=== PATIENT | female | born 1965 | race Caucasian/White ===

== ENCOUNTER 2016-03-12 22:45 | Emergency (ER) | payer MEDICARE ==
[2011-03-04 14:12] VITALS: BMI 23.2
[2016-03-13 00:22] LABS: BASOPHILS 0.4 % (0.0-2.0); EOSINOPHILS 8.4 % (0-7); HEMATOCRIT 41.5 % (36.0-48.0); HEMOGLOBIN 13.7 g/dL (12-16); IMMATURE GRANULOCYTES 0.3 % (0-5); LYMPHOCYTES 32.5 % (15-50); MCH 28.8 pg (26.0-34.0); MCV 87.4 fL (80.0-100.0); MEAN PLATELET VOLUME 10.4 fL (7.4-10.4); MONOCYTES 7.2 % (2-11); NEUTROPHILS 51.2 % (40-80); PLATELET COUNT 174 10x3/uL (130-400); RBC 4.75 10x6/uL (4.00-5.40); RDW 12.4 % (11.5-14.5); WBC 9.2 10x3/uL (4.8-10.8)
[2016-03-13 00:36] LABS: ALBUMIN 3.9 g/dL (3.4-5.0); ALKALINE PHOSPHATASE 94 U/L (46-116); ALT (SGPT) 23 U/L (10-68); BILIRUBIN - TOTAL 0.19 mg/dL (0.2-1.3); CALC OSMOLALITY 295 mosm/kg (275-300); CALCIUM 9.5 mg/dL (8.5-10.1); CARBON DIOXIDE 31.7 mmol/L (21.0-32.0); CHLORIDE - SERUM 106 mmol/L (98-107); GLUCOSE 110 mg/dL (74-106); POTASSIUM - SERUM 4.1 mmol/L (3.5-5.1); SODIUM 147 mmol/L (136-145); UREA NITROGEN 22 mg/dL (7-18); eGFR NON AFRICAN AMERICAN 62 mL/min (90-120)
[2016-03-13 00:52] LABS: CKMB 0.9 U/L (0.0-3.6); CREATINE KINASE 62 UL (21-215); TROPONIN-I 0.021 ng/mL (0.000-0.060)
== END 2016-03-13 02:44 | disposition home or self-care (01) ==
LOC: D.ER 22:45
PROVIDERS: Emergency Medicine
DX: R07.9 Chest pain, unspecified (principal); R00.1 Bradycardia, unspecified; R94.31 Abnormal electrocardiogram [ECG] [EKG]

== ENCOUNTER → 2016-11-13 12:41 | Outpatient (CLI) | payer MEDICARE ==
[2011-03-04 14:12] VITALS: BMI 23.2
== END | disposition home or self-care (01) ==
LOC: D.RAD 12:41
DX: R13.10 Dysphagia, unspecified (principal)

== ENCOUNTER 2017-07-08 17:38 | Emergency (ER) | payer MEDICARE ==
[2011-03-04 14:12] VITALS: BMI 23.2
[2017-07-08 18:32] LABS: BASOPHILS 0.3 % (0-2); EOSINOPHILS 1.6 % (0-7); HEMATOCRIT 37.6 % (36.0-48.0); HEMOGLOBIN 12.6 g/dL (12-16); IMMATURE GRANULOCYTES 0.1 % (0-5); LYMPHOCYTES 29.1 % (15-50); MCHC 33.5 g/dL (31.0-37.0); MCV 86.4 fL (80.0-100.0); MEAN PLATELET VOLUME 10.3 fL (7.4-10.4); MONOCYTES 7.9 % (2-11); PLATELET COUNT 184 10x3/uL (130-400); RBC 4.35 10x6/uL (4.00-5.40); RDW 12.3 % (11.5-14.5); WBC 7.6 10x3/uL (4.8-10.8)
[2017-07-08 18:50] LABS: ALBUMIN 3.8 g/dL (3.4-5.0); ALKALINE PHOSPHATASE 86 U/L (46-116); ALT (SGPT) 19 U/L (10-68); BILIRUBIN - TOTAL 0.35 mg/dL (0.2-1.3); CALC OSMOLALITY 278 mosm/kg (275-300); CALCIUM 9.3 mg/dL (8.5-10.1); CARBON DIOXIDE 29.1 mmol/L (21.0-32.0); CHLORIDE - SERUM 101 mmol/L (98-107); CREATININE - SERUM 0.9 mg/dL (0.6-1.3); GLUCOSE 96 mg/dL (74-106); PROTEIN - SERUM 7.6 g/dL (6.4-8.2); SODIUM 138 mmol/L (136-145); UREA NITROGEN 21 mg/dL (7-18); eGFR NON AFRICAN AMERICAN 69 mL/min (90-120)
[2017-07-08 19:04] LABS: CKMB 0.7 U/L (0.0-3.6); CREATINE KINASE 62 UL (21-215)
[2017-07-08 19:05] LABS: TROPONIN-I < 0.017 ng/mL (0.000-0.060)
== END 2017-07-08 19:32 | disposition home or self-care (01) ==
LOC: D.ER 17:38
PROVIDERS: Emergency Medicine
DX: R07.89 Other chest pain (principal); J18.9 Pneumonia, unspecified organism; R00.1 Bradycardia, unspecified; I45.4 Nonspecific intraventricular block

== ENCOUNTER 2017-07-14 15:37 | Emergency (ER) | payer MEDICARE ==
[2011-03-04 14:12] VITALS: BMI 23.2
== END 2017-07-14 17:18 | disposition home or self-care (01) ==
LOC: D.ER 15:37
DX: R07.89 Other chest pain (principal); R07.81 Pleurodynia; I45.10 Unspecified right bundle-branch block

== ENCOUNTER 2017-08-24 17:22 | Emergency (ER) | payer MEDICARE ==
[~2017-08-24] VITALS: Ht 175.3 cm; Wt 67.7 kg
[2017-08-24 17:54] VITALS: Ht 175.3 cm; Wt 67.7 kg
[2017-08-24] MEDS ORDERED: NORCO 7.5/325 T1 TA1 PO (17:56)
[2017-08-24] MEDS ORDERED: TRAZODONE HCL300 MG PO (17:57)
[2017-08-24] MEDS ORDERED: VESICARE10 MG PO (17:57)
[2017-08-24] MEDS ORDERED: GEODON80 MG PO (17:57)
[2017-08-24] MEDS ORDERED: LOPID600 MG PO (17:57)
[2017-08-24] MEDS ORDERED: ESTRACE 0.5 MG0.5 MG PO (17:58)
[2017-08-24] MEDS ORDERED: VOLTAREN75 MG PO (20:43)
[2017-08-24 20:59] VITALS: BP 126/68
== END 2017-08-24 20:48 | disposition home or self-care (01) ==
LOC: D.ER 17:22
DX: M25.571 Pain in right ankle and joints of right foot (principal); M77.9 Enthesopathy, unspecified

== ENCOUNTER 2017-10-13 18:08 | Emergency (ER) | payer MEDICARE ==
[~2017-10-13] VITALS: Ht 175.3 cm; Wt 67.0 kg
[~2017-10-13 18:08] MED LIST: ESTRACE 0.5 MG0.5 MG PO; GEODON80 MG PO; LOPID600 MG PO; NORCO 7.5/325 T1 TA1 PO; TRAZODONE HCL300 MG PO; VESICARE10 MG PO; VOLTAREN75 MG PO
[2017-10-13 18:25] VITALS: BP 118/53; Ht 175.3 cm; Wt 67.0 kg
[2017-10-13] MEDS ORDERED: TORADOL10 MG PO (22:15)
== END 2017-10-13 22:32 ==
LOC: D.ER 18:08
DX: S40.012A Contusion of left shoulder, initial encounter (principal); W18.30XA Fall on same level, unspecified, initial encounter; Y93.89 Activity, other specified; Y92.019 Unspecified place in single-family (private) house as the place of occurrence of the external cause

== ENCOUNTER 2018-01-06 10:31 | Emergency (ER) | payer MEDICARE ==
[~2018-01-06] VITALS: Ht 175.3 cm; Wt 69.1 kg
[~2018-01-06 10:31] MED LIST changes: +TORADOL10 MG PO
[2018-01-06 10:38] VITALS: Ht 175.3 cm; Wt 69.1 kg
[2018-01-06] MEDS ORDERED: VOLTAREN75 MG PO (12:29)
[2018-01-06] MEDS ORDERED: OMEPRAZOLE40 MG PO (12:29)
[2018-01-06 13:30] VITALS: BP 142/69
== END 2018-01-06 13:03 | disposition home or self-care (01) ==
LOC: D.ER 10:31
DX: S96.911A Strain of unspecified muscle and tendon at ankle and foot level, right foot, initial encounter (principal); X58.XXXA Exposure to other specified factors, initial encounter; Y93.89 Activity, other specified; Y92.019 Unspecified place in single-family (private) house as the place of occurrence of the external cause

== ENCOUNTER → 2018-07-06 16:36 | Outpatient (CLI) | payer MEDICARE ==
[2018-01-06 10:38] VITALS: BMI 22.5
[~2018-07-06 16:36] MED LIST changes: +OMEPRAZOLE40 MG PO
== END | disposition home or self-care (01) ==
LOC: D.RT 16:36
PROVIDERS: ATTEND Emergency Medicine
DX: M54.6 Pain in thoracic spine (principal); I49.9 Cardiac arrhythmia, unspecified

== ENCOUNTER 2018-08-05 09:00 | Outpatient (CLI) | payer MEDICARE ==
[2018-01-06 10:38] VITALS: BMI 22.5
== END 2018-08-05 10:00 | disposition home or self-care (01) ==
LOC: D.MAMMO 09:00
PROVIDERS: ATTEND Emergency Medicine
DX: Z12.31 Encounter for screening mammogram for malignant neoplasm of breast (principal)

== ENCOUNTER 2019-03-26 11:32 | Emergency (ER) | payer MEDICARE ==
[2019-03-26 11:35] VITALS: Ht 175.3 cm
[2019-03-26] MEDS ORDERED: PREDNISONE20 MG PO (12:50)
[2019-03-26 13:10] VITALS: BP 122/77
== END 2019-03-26 13:28 | disposition home or self-care (01) ==
LOC: D.ER 11:32
DX: T78.40XA Allergy, unspecified, initial encounter (principal); X58.XXXA Exposure to other specified factors, initial encounter

== ENCOUNTER 2019-08-10 13:43 | Emergency (ER) | payer MEDICARE ==
[~2019-08-10] VITALS: Ht 175.3 cm; Wt 69.5 kg
[~2019-08-10 13:43] MED LIST changes: +PREDNISONE20 MG PO
[2019-08-10 13:47] VITALS: Ht 175.3 cm; Wt 69.5 kg
[2019-08-10] MEDS ORDERED: ZANAFLEX4 MG PO (13:53)
[2019-08-10 16:53] VITALS: BP 127/73
== END 2019-08-10 16:54 | disposition home or self-care (01) ==
LOC: D.ER 13:43
DX: S27.818A Other injury of esophagus (thoracic part), initial encounter (principal); K22.4 Dyskinesia of esophagus; X58.XXXA Exposure to other specified factors, initial encounter